=== PATIENT | male | born 1975 | race Caucasian/White ===

== ENCOUNTER 2019-02-26 06:10 | Inpatient (IN) | payer OTHER ==
[2019-02-26] MEDS ORDERED: morphINE SR 15 MG TAB PO ONE (06:22)
[2019-02-26] MEDS ORDERED: ACETAMINOPHEN 500 MG TAB PO ONE (06:22)
[2019-02-26] MEDS ORDERED: GABAPENTIN 300 MG CAP PO ONE (06:22)
[2019-02-26] MEDS ORDERED: ceFAZolin 2 GM/DEXTROSE 100 ML IV ONE (06:22)
[2019-02-26] MEDS ORDERED: morphINE PF 0.2 MG in SYRINGE INTRATHECAL 1 SYR IT ONE (06:22)
[2019-02-26] MEDS ORDERED: LR 1,000 ML IV ONE (06:24)
[2019-02-26] MEDS ORDERED: BUPIVACAINE/EPI 0.25% 30 ML SDV ONE (06:33)
[2019-02-26] MEDS ORDERED: THROMBIN (BOVINE) 20,000 UNIT VIAL TP ONE (06:33)
[2019-02-26] MEDS ORDERED: CHLORHEXIDINE GLUC HIBICLENS 118 ML BTL TP ONE (06:33)
[2019-02-26] MEDS ORDERED: BACITRACIN 50,000 UNITS/10 ML SYR IRR ONE (06:34)
[2019-02-26] MEDS ORDERED: SURGIFLO MATRIX KIT WITH THROMBIN 8 ML TP ONE (06:35)
[2019-02-26] MEDS ORDERED: CITRATE DEXTROSE SOLN 500 ML BAG ONE (06:36)
--- NOTE | 2019-02-26 06:56 | PDHPUP ---
History & Physical Update H&P update statement: This history and physical update is based on an assessment of the patient which was completed after admission or registration (within 24 hours), but prior to the surgery/procedure. H&P update: H&P reviewed & patient examined, no change in patient's condition since H&P completed (Consents signed and site marked. All questions answered.)
[2019-02-26] MEDS ORDERED: MIDAZOLAM 2 MG/2 ML VIAL IVP ONE (07:19)
--- NOTE | 2019-02-26 07:20 | PDANEPAE ---
ANE Past Medical History - Cardiovascular History Hx Hypertension: No Hx Arrhythmias: No Hx Chest Pain: No Hx Coronary Artery / Peripheral Vascular Disease: No Hx CHF / Valvular Disease: No Hx Palpitations: No - Pulmonary History Hx COPD: No Hx Asthma/Reactive Airway Disease: No Hx Recent Upper Respiratory Infection: No Hx Oxygen in Use at Home: No Hx Sleep Apnea: No Sleep Apnea Screening Result - Last Documented: Negative - Neurologic History Hx Cerebrovascular Accident: No Hx Seizures: No Hx Dementia: No Neurologic History Comment: hx of cervical discectomy. numbness and tingling to right leg and foot - Endocrine History Hx Diabetes: No - Renal History Hx Renal Disorders: No - Liver History Hx Hepatic Disorders: No - Neurological & Psychiatric Hx Hx Neurological and Psychiatric Disorders: No - Cancer History Hx Cancer: No - Congenital Disorder History Hx Congenital Disorders: No - GI History Hx Gastrointestinal Disorders: No - Other Health History Other Health History: none - Chronic Pain History Chronic Pain: Yes (lower back, right leg, bilateral shoulders) - Surgical History Prior Surgeries: c5-6 discectomy in 2005 ANE Review of Systems Review of Systems: - Exercise capacity METS (RN): 4 METS ANE Patient History - Allergies Allergies/Adverse Reactions: No Known Allergies Allergy (Verified 02/17/19 09:05) - Home Medications Home Medications: NK [No Known Home Meds] 02/17/19 [Last Taken Unknown] - NPO status NPO Since - Liquids (Date): 02/26/19 NPO Since - Liquids (Time): 00:01 NPO Since - Solids (Date): 02/25/19 NPO Since - Solids (Time): 20:30 - Anes Hx Anes Hx: no prior problems - Smoking Hx Smoking Status: Former smoker - Family Anes Hx Family Hx Anesthesia Complications: none ANE Labs/Vital Signs - Vital Signs Vital Signs: reviewed preoperatively; see RN documention for details Blood Pressure: 123/90 Heart Rate: 96 Respiratory Rate: 16 O2 Sat (%): 98 Height: 172.72 cm Weight: 70.307 kg ANE Physical Exam - Airway Neck exam: FROM Mallampati Score: Class 2 Mouth exam: normal dental/mouth exam - Pulmonary Pulmonary: clear to auscultation - Cardiovascular Cardiovascular: regular rate and rhythym - ASA Status ASA Status: II ANE Anesthesia Plan Anesthesia Plan: general endotracheal anesthesia
[2019-02-26] MEDS ORDERED: DEXMEDETOMIDINE HCL 400 MCG in NS 100 ML IV SCH (07:30)
[2019-02-26] MEDS ORDERED: PROPOFOL 200 MG/20 ML VIAL ONE (07:40)
[2019-02-26] MEDS ORDERED: PROPOFOL/EMULSION 500 MG/50 ML BOTTLE IV ONE ×2 (07:40→07:59)
[2019-02-26] MEDS ORDERED: PETROLAT,WHT/MIN OIL/SOD CHL 3.5 GM OPHT.OINT ONE (07:41)
[2019-02-26] MEDS ORDERED: ROCURONIUM 50 MG/5 ML VIAL ONE ×4 (07:46→09:14)
[2019-02-26] MEDS ORDERED: GLYCOPYRROLATE 0.2 MG/1 ML VIAL ONE ×2 (07:46→11:59)
[2019-02-26] MEDS ORDERED: LIDOCAINE HCL 160 MG/4 ML LTA KIT TP ONE (07:51)
[2019-02-26] MEDS ORDERED: fentaNYL 100 MCG/2 ML INJ ONE (07:54)
[2019-02-26] MEDS ORDERED: HYDROmorphONE/DILAUDID 2 MG/ML INJ ONE (07:54)
[2019-02-26] MEDS ORDERED: DEXAMETHASONE 4 MG/ML VIAL ONE ×3 (07:56)
[2019-02-26] MEDS ORDERED: ePHEDrine SULFATE 25 MG/5 ML SYR ONE (08:48)
[2019-02-26] MEDS ORDERED: CISATRACURIUM BESYLATE 20 MG/10 ML VIAL IV ONE (09:14)
[2019-02-26] MEDS ORDERED: POLYETHYLENE GLYCOL 3350 17 GM PKT PO PRN (10:47)
[2019-02-26] MEDS ORDERED: NALOXONE HCL 0.4 MG/ML INJ IVP PRN ×2 (10:47→12:31)
[2019-02-26] MEDS ORDERED: ONDANSETRON DISINTEGRATING 4 MG TAB PO PRN (10:47)
[2019-02-26] MEDS ORDERED: ONDANSETRON 4 MG/2 ML VIAL IVP PRN ×2 (10:47→12:31)
[2019-02-26] MEDS ORDERED: MAGNESIUM HYDROXIDE 30 ML UDCUP PO PRN (10:47)
[2019-02-26] MEDS ORDERED: BISACODYL 10 MG SUPP PR PRN (10:47)
[2019-02-26] MEDS ORDERED: diphenhydrAMINE 25 MG CAP PO PRN (10:47)
[2019-02-26] MEDS ORDERED: LACTULOSE 20 GM/30 ML UDCUP PO PRN (10:47)
--- NOTE | 2019-02-26 10:57 | POSTOPPROG ---
Post Op Note Date of Operation: 02/26/19 Surgeon: Stacey Thomas Fluoroscope Operator: JANIS Thomas PAC Anesthesia: GET(General Endotracheal) Pre-op Diagnosis: Lumbar stenosis right foot weakness Post-op Diagnosis: Lumbar stenosis right foot weakness Indication: Lumbar stenosis right foot weakness Procedure: L4-S1 laminectomy with R L4/5 TLIF, L4-S1 PSF Inf/Abcess present in the surg proc area at time of surgery?: No EBL: 50-100 PA Addendum - Addendum .: S: Resting comfortably O: NAD A&OX3 MAEx4 5/5 and equal in BUE and BLE except right EHL/DF 4/5 A/P L4-S1 laminectomy with R L4/5 TLIF, L4-S1 PSF -Optimize pain management -Advance diet as tolerated -PT/OT -LSO when OOB -JPx1 -DVT prophx: TEDs, SCDs, Lovenox okay POD1 -Post op xrays pending -Please notify NS with any change in neuro/motor exam
[2019-02-26] MEDS ORDERED: NS 1,000 ML IV SCH (11:00)
--- NOTE | 2019-02-26 11:19 | PDMN ---
Medical Necessity Medical necessity: Pt meets inpt criteria per MD order and [facility] [place] S-820, Lumbar Fusion, 2 days-MCR IP only list. 43 y/o w/lumbar stenosis and R foot weakness, admitted for L4-S1 laminectomy w/R L4/5 and L5/S1 TLIF, L4-S1 PSF, and post-op care.
[2019-02-26] MEDS ORDERED: ONDANSETRON 4 MG/2 ML VIAL ONE (12:04)
[2019-02-26] MEDS ORDERED: PHENYLEPHRINE HCL 100 MCG/ML SYR ONE ×3 (12:11)
[2019-02-26] MEDS ORDERED: ceFAZolin 1 GM VIAL ONE ×2 (12:20)
[2019-02-26] MEDS ORDERED: NEOSTIGMINE METHYLSULFATE 5 MG/5 ML SYR ONE (12:30)
[2019-02-26] MEDS ORDERED: DIAZEPAM 10 MG/2 ML SYR IVP PRN (12:31)
[2019-02-26] MEDS ORDERED: PROMETHAZINE HCL 25 MG/ML INJ IVP PRN (12:31)
[2019-02-26] MEDS ORDERED: HYDROmorphONE/DILAUDID 1 MG/ML INJ IVP PRN (12:31)
[2019-02-26] MEDS ORDERED: ALBUTEROL 3 ML DEYVIAL IH PRN (12:31)
[2019-02-26] MEDS ORDERED: PHENYLEPHRINE HCL 100 MCG/ML SYR IVP PRN (12:31)
[2019-02-26] MEDS ORDERED: fentaNYL 100 MCG/2 ML INJ IVP PRN (12:31)
[2019-02-26] MEDS ORDERED: MEPERIDINE 25 MG/0.5 ML AMP IVP PRN (12:31)
[2019-02-26] MEDS ORDERED: METOCLOPRAMIDE 10 MG/2 ML VIAL IVP PRN (12:31)
[2019-02-26] MEDS ORDERED: LR 500 ML IV PRN (12:31)
[2019-02-26] MEDS: ACETAMINOPHEN 500 MG TAB PO SCH ×2 (13:57→21:47)
[2019-02-26] MEDS: METHOCARBAMOL 750 MG TAB PO PRN ×2 (13:57→21:46)
--- NOTE | 2019-02-26 14:09 | GOP ---
[f rep st] OPERATIVE REPORT DATE OF OPERATION: 02/26/2019 SURGEON: Frank Gonzalez MD MOLD INJECTOR: Stacey Thomas PA-C. PREOPERATIVE DIAGNOSIS: 1. L4-L5, L5-S1 spondylosis with severe spinal stenosis at L4-5. 2. Right-sided L4-5 disk herniation. 3. Spondylosis L4 through S1 with right lower extremity radiculopathy and foot weakness. 4. Treatment refractory to nonoperative intervention. POSTOPERATIVE DIAGNOSIS: 1. L4-L5, L5-S1 spondylosis with severe spinal stenosis at L4-5. 2. Right-sided L4-5 disk herniation. 3. Spondylosis L4 through S1 with right lower extremity radiculopathy and foot weakness. 4. Treatment refractory to nonoperative intervention. 5. Inflammatory tissue on the right at L4-5. 6. 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 PROCEDURE PERFORMED: 1. Posterior arthrodesis with approach to L4, L5, S1. 2. Posterolateral fusion with bilateral pedicle screw placement at L4, L5, S1, from the Illum[employer] sly 4.75 system. 3. Decompressive laminectomy with bilateral medial facetectomies, L4-L5, L5-S1. 4. Right-sided L4-5 facetectomy with diskectomy and interbody fusion with an 8 x 26 mm titanium-coat ed PEEK cage with morselized autograft and allograft. 5. Right-sided L5-S1 facetectomy and nerve root decompression. 6. Posterolateral fusion on the left between L4 and S1 with morselized autograft and allograft. 7. Use of intraoperative 3D Stealth navigation. 8. Use of intraoperative fluoroscopy, less than 1 hour physician time. 9. Use of neuromonitoring. 10. Use of operating microscope. 11. Injection of preservative-free intrathecal narcotics. FINDINGS: SPECIMENS: None. INDICATIONS: The patient is a very pleasant gentleman who presented to my office with right lower ex tremity radiculopathy with right leg weakness and excruciating back pain. The patient had spondylosi s L4 through S1 and a large disk herniation with severe spondylosis stenosis at L4-5. After discussi on of risks, benefits, treatment alternatives and after failing nonoperative intervention, we decided to proceed forth with surgery as described above. DESCRIPTION OF PROCEDURE: The patient was brought to the operating theater and he underwent general endotracheal anesthesia without complications. He had Venodynes, CELSO hose and appropriate lines plac ed by Anesthesia. He was then flipped prone onto the Mack table and all bony prominences were ins pected and padded. The lower lumbar region was then prepped and draped in the usual sterile surgical fashion. A time-out was completed per protocol and the patient received antibiotics within 1 hour o f incision. Using lateral fluoroscopy and a spinal needle, we then picked our entry point at the L4 through S1 le vels. This was marked in the midline. The incision was infiltrated with Marcaine with epinephrine a nd further taken down with the scalpel blade. Using monopolar, the incision was then taken down the midline through the lumbodorsal fascia and subperiosteal dissection carried out to the transverse pro cesses of L4, L5 and S1 bilaterally. Care was taken to preserve the bilateral L3-4 facet joint. Martha p retractors were placed to maintain our exposure. We confirmed our level using lateral fluoroscopy. We attached the 3D Stealth navigation clamp to the spinous process of L5 and completed a 3D Stealth navigation spin. Using 3D navigation, we picked our entry point then placed our missile control pilot holes for the bilateral pedicle screws at L4, L5 and S1. All holes were manually palpated with no evidence of any cortical breaches. We then tapped and placed 6.5 x 50 mm screws bilaterally at L4, 6.5 x 45 mm scre ws bilaterally at L5 and S1, all from [employer] Solera 4.75 system. Another 3D Stealth navigation sp in demonstrated good placement of the hardware. At this point, the microscope was brought into field to assist with microscopic dissection and maintain illumination and magnification. Using a combinat ion of bur tip on the drill, Kerrison punches and Leksell rongeur, we complete decompressive laminect hina of L4-L5, L5-S1 with medial facetectomies. We completed aggressive facetectomy on the right side of L4-L5, L5-S1. We then moved up to L4-5. We distracted the interspace and completed a right-side d L4-5 diskectomy. The tissue was noted to be extremely adherent at this level from likely his PRP a nd injections in the past and this made it extremely tedious. The surgery was greater than 50% more challenging secondary to the patient's inflamed tissues at these areas. We did remove a large free-f ragment disk herniation from the right side at the L4-5 level. We then completed a right-sided L4-5 diskectomy and prepared the cartilaginous endplates. We measured the interbody space and placed an 8 x 26 mm titanium-coated PEEK cage with morselized autograft and allograft anterior toward the midlin e. We packed additional morcellized autograft in the disk space interbody fusion. We let down distr action and moved on to L5-S1, where we completed a right-sided L5-S1 facetectomy. At this point, the tissues were noted to be extremely inflamed as well, but he had a very enlarged L5 nerve root which may have been, in fact, conjoined. The nerve took up the entirety of the space of the foramen and th erefore, I was not able complete a diskectomy where the TLIF is indicated. We ensured that the L5 an d S1 nerve roots were well decompressed. We then obtained hemostasis with bipolar. We decorticated the bone on the left side between L4 to S1. We placed 2 lordotic rods in the heads of the screws bet ween L4 and S1, and secured them down with cap screws which were then tightened per jewelry estimator's se tting. We injected preservative-free intrathecal narcotics. The wound was irrigated copiously with bacitracin irrigation and drain left in subfascial space. The wound was closed in multiple layers us ing Vicryl sutures in the deep layers and Dermabond for the skin. The patient's wounds were dressed sterilely. He was then flipped supine onto the transfer cart, where he was awakened, extubated and t aken to the recovery room in stable condition. There were no complications and no noted changes on neuromonitoring throughout the procedure. COMPLICATIONS: None. /[id number]/MODL
[2019-02-26] MEDS: oxyCODONE IR 5 MG TAB PO PRN (17:01)
[2019-02-26] MEDS: FAMOTIDINE 20 MG TAB PO SCH (21:46)
[2019-02-26] MEDS: SENNOSIDES/DOCUSATE SODIUM TAB PO SCH (21:46)
[2019-02-27] MEDS: ACETAMINOPHEN 500 MG TAB PO SCH ×3 (08:51→23:18)
[2019-02-27] MEDS: METHOCARBAMOL 750 MG TAB PO PRN ×2 (08:52→17:32)
[2019-02-27] MEDS: FAMOTIDINE 20 MG TAB PO SCH ×2 (08:53→23:20)
[2019-02-27] MEDS: SENNOSIDES/DOCUSATE SODIUM TAB PO SCH ×2 (08:53→23:20)
--- NOTE | 2019-02-27 09:32 | NEUSURGPN ---
Date of Surgery: 02/26/19 Post Op Day: 1 Assessment/Plan: 43 yo male s/p L4-S1 laminectomy with R L4/5 TLIF, L4-S1 PSF - neuro stable - pain control - CYN drain x 1 continue - Postop L-spine x-rays pending - PT/OT, wear brace when out of bed - SCDs/TEDs, Lovenox - Please contact neurosurgery with any changes in neuro exam/status Discussed with Dr. Gonzalez. Subjective: Having localized back pain, no leg pain. Unchanged RLE numbness compared to prior to surgery. Objective: Awake. Alert. PERRL. EOMI Facial expression symmetrical Muscle strength full at 5/5 except for right DF at 4+/5 Incision with dressing, CYN drain x 1 - Physician Discussed Patient with Dr.: Gonzalez Neurosurgery Physical Exam - Vitals, I&O, Labs I and O 02/26/19 02/27/19 02/28/19 05:59 05:59 05:59 Intake Total 2600 Output Total 3930 Balance -1330 Weight 70.307 kg Intake: Oral (ml) 1000 IV Intake (ml) 1600 Output: Urine (ml) 3600 Catheter 3600 Estimated Blood Loss (ml) 150 CYN Drain Output (ml) 180 #1 Posterior Back Mack 180 Cid Other: Intake Quantity Yes Sufficient Vital Signs Temp Pulse Resp BP Pulse Ox 36.7 C 79 16 99/54 L 95 02/27/19 07:46 02/27/19 07:46 02/27/19 07:46 02/27/19 07:46 02/27/19 07:46 ICD10 Worksheet Patient Problems: Problems Problem Status Onset Lumbar spondylosis Acute - ICD10 Problem Qualifiers (1) Lumbar spondylosis
--- NOTE | 2019-02-27 12:49 | ASMTCMCOM ---
CM Note CM Note Notes: Patient is a 43 year old male who presents for planned L4-S1 laminectomy with R L4/5 TLIF, L4-S1 PSF. PT evaluation recommending home/outpatient rehab. OT pending. CM to follow. D/C Plan: Likely independent Date Signed: 02/27/2019 12:48 PM Electronically Signed By:Kassi Martinez
--- NOTE | 2019-02-27 13:19 | POSTANESTH ---
Post Anesthetic Evaluation Cardiovascular Status: Normal, Stable Respiratory Status: Normal, Stable Level of Consciousness/Mental Status: Can Participate in Eval Pain Control: Adequate, Prn Tx Ordered Nausea/Vomiting Control: Adequate, Prn Tx Ordered Complications Possibly Related to Anesthesia: None Noted
[2019-02-27] MEDS: ENOXAPARIN 40 MG/0.4 ML SYR SC SCH (14:08)
[2019-02-27] MEDS: oxyCODONE IR 5 MG TAB PO PRN (23:27)
[2019-02-28] MEDS: METHOCARBAMOL 750 MG TAB PO PRN (03:35)
[2019-02-28] MEDS: oxyCODONE IR 5 MG TAB PO PRN ×2 (05:41→09:46)
[2019-02-28] MEDS: ACETAMINOPHEN 500 MG TAB PO SCH ×2 (06:23→13:01)
--- NOTE | 2019-02-28 06:28 | NEUSURGPN ---
Date of Surgery: 02/26/19 Post Op Day: 2 Assessment/Plan: 43 yo male s/p L4-S1 laminectomy with R L4/5 TLIF, L4-S1 PSF - neuro stable - pain control - CYN drain x 1, out later today - Postop L-spine x-rays stable - PT/OT, wear brace when out of bed - SCDs/TEDs, Lovenox - Dispo: home later today - Please contact neurosurgery with any changes in neuro exam/status Discussed with Dr. Gonzalez. Subjective: doing well, some back pain, but controlled. Still with foot weaknes. Objective: Awake. AAOx4 PERRL. EOMI speech clear and fluent Facial expression symmetrical Muscle strength full at 5/5 except for right DF at 4+/5 Incision with dressing, CYN drain x 1, 160 out - Physician Discussed Patient with : Carlos Neurosurgery Physical Exam - Vitals, I&O, Labs I and O 02/27/19 02/28/19 03/01/19 05:59 05:59 05:59 Intake Total 2600 2800 Output Total 3930 560 Balance -1330 2240 Weight 70.307 kg Intake: Oral (ml) 1000 2800 IV Intake (ml) 1600 Output: Urine (ml) 3600 400 Catheter 3600 Toilet 400 Estimated Blood Loss (ml) 150 CYN Drain Output (ml) 180 160 #1 Posterior Back Mack 180 160 Cid Other: Intake Quantity Yes Yes Sufficient Output Comment Toilet Per patient report Number of Voids Toilet 3 Vital Signs Temp Pulse Resp BP Pulse Ox 37 C 83 14 111/65 97 02/28/19 03:56 02/28/19 03:56 02/28/19 03:56 02/28/19 03:56 02/28/19 03:56 ICD10 Worksheet Patient Problems: Problems Problem Status Onset Lumbar spondylosis Acute
[2019-02-28 08:38] VITALS: BP 114/88
[2019-02-28] MEDS: FAMOTIDINE 20 MG TAB PO SCH (08:51)
[2019-02-28] MEDS: SENNOSIDES/DOCUSATE SODIUM TAB PO SCH (08:51)
[2019-02-28] MEDS: ENOXAPARIN 40 MG/0.4 ML SYR SC SCH (08:51)
--- NOTE | 2019-02-28 09:29 | ASDISCHSUM ---
Discharge Information Plan Status:Home with No Needs Medically Cleared to Leave: Discharge Date: CM D/C Disposition:Home, Routine, Self-Care ADT D/C Disposition:Home, Routine, Self-Care Projected Discharge Date: Transportation at D/C:Family Discharge Delay Reason: Follow-Up Date: Discharge Slot: Final Diagnosis: Placement Information Patient Contact Information Contact Name:DIVYA Relationship: Address:[address] [place] [address] City:[place] Alternate Phone: [facility]/Zip Code:[place] [address] Email: Financial Information Financial Class:HMO and PPO Plans Primary Plan Desc:[employer] Primary Plan Number:[id number] Secondary Plan Desc: Secondary Plan Number: Assessment Information [facility] CM Progress Note CM Note CM Note Notes: Patient is a 43 year old male who presents for planned L4-S1 laminectomy with R L4/5 TLIF, L4-S1 PSF. PT evaluation recommending home/outpatient rehab. OT pending. CM to follow. D/C Plan: Likely independent Date Signed: 02/27/2019 12:48 PM Electronically Signed By:Kassi Martinez LACE LACVelma Length of stay for Answers: 2 days current admission Acuity / Level of Answers: Yes Care: Did the patient have an inpatient admission? # of Emergency department Answers: 0 visits in the last 6 months Score: 5 Date Signed: 02/28/2019 09:29 AM Electronically Signed By:Albertina Fraire Intervention Information
[2019-03-18] MEDS ORDERED: NEOSTIGMINE METHYLSULFATE 5 MG/5 ML SYR ONE (05:41)
== END 2019-02-28 13:07 | disposition home or self-care (01) | DRG 455 ==
LOC: F3N 06:10
PROVIDERS: ADMIT Neurological Surgery; ATTEND Neurological Surgery
PROC: 0SG0071 Fusion of Lumbar Vertebral Joint with Autologous Tissue Substitute, Posterior Approach, Posterior Column, Open Approach (ICD-10-PCS; principal; 2019-02-26 08:15)
PROC: 0SG3071 Fusion of Lumbosacral Joint with Autologous Tissue Substitute, Posterior Approach, Posterior Column, Open Approach (ICD-10-PCS; principal; 2019-02-26 08:15)
PROC: 0SG00AJ Fusion of Lumbar Vertebral Joint with Interbody Fusion Device, Posterior Approach, Anterior Column, Open Approach (ICD-10-PCS; principal; 2019-02-26 08:15)
PROC: 0ST20ZZ Resection of Lumbar Vertebral Disc, Open Approach (ICD-10-PCS; principal; 2019-02-26 08:15)
PROC: 00NY0ZZ Release Lumbar Spinal Cord, Open Approach (ICD-10-PCS; principal; 2019-02-26 08:15)
PROC: 0SG30AJ Fusion of Lumbosacral Joint with Interbody Fusion Device, Posterior Approach, Anterior Column, Open Approach (ICD-10-PCS; principal; 2019-02-26 08:15)
PROC: 4A1004G Monitoring of Central Nervous Electrical Activity, Intraoperative, Open Approach (ICD-10-PCS; principal; 2019-02-26 08:15)
PROC: 8E0WXBF Computer Assisted Procedure of Trunk Region, With Fluoroscopy (ICD-10-PCS; principal; 2019-02-26 08:15)
PROC: 01NB0ZZ Release Lumbar Nerve, Open Approach (ICD-10-PCS; principal; 2019-02-26 08:15)
DX: M47.26 Other spondylosis with radiculopathy, lumbar region (principal); M47.27 Other spondylosis with radiculopathy, lumbosacral region; M48.061 Spinal stenosis, lumbar region without neurogenic claudication; M51.17 Intervertebral disc disorders with radiculopathy, lumbosacral region; M51.26 Other intervertebral disc displacement, lumbar region
CPT/HCPCS: 97116-GP; 97161-GP; 97165-GO; 97535-GO; C1713; J0690; J1100; J1170; J1200; J1650; J2250; J2274; J2370; J2405; J2704; J2710; J3010